=== PATIENT | male | born 2000 | race Two or more races ===

== ENCOUNTER → 2025-06-30 | Emergency (ER) | payer OTHER ==
[~2025-06-30] VITALS: Ht 185.4 cm; Wt 69.9 kg
[~2025-06-30] MED LIST: 0.9 % SODIUM CHLORIDE 1,000 ML IV SCH; FAMOTIDINE/PF 20 MG in 0.9 % SODIUM CHLORIDE 8 ML IV PUSH ONE; KETOROLAC TROMETHAMINE 30 MG VIAL IU ONE
[2025-06-30 17:25] VITALS: BP 130/70; O2SAT 100
== END | disposition left against medical advice (07) ==
LOC: ER 14:58
DX: L02.215 Cutaneous abscess of perineum (principal)